=== PATIENT | female | born 1945 ===

== ENCOUNTER 2025-06-17 09:44 | Emergency (ER) | payer MEDICARE ==
[~2025-06-17] VITALS: Ht 170.2 cm; Wt 71.0 kg
[2025-06-17 10:06] VITALS: BP 129/79; PULSE 55; RESP 18; TEMP 97.7; O2SAT 98
[2025-06-17 11:07] LABS: MEAN PLATELET VOLUME 9.6 FL (7.4-10.4); RED CELL DISTRIBUTION WIDTH 14.5 % (11.5-14.5)
[2025-06-17 11:34] LABS: CREATININE 0.90 MG/DL (0.40-0.90); PRO BRAIN NATRIURETIC PEPTIDE 130 PG/ML (0-450); TOTAL CARBON DIOXIDE 29.0 MMOL/L (24-32); eCRCL 48 ML/MIN; eGFR 60 ML/MIN
== END 2025-06-17 13:26 | disposition left against medical advice (07) ==
LOC: ER 09:46
DX: R53.1 Weakness (principal); R42 Dizziness and giddiness; R79.9 Abnormal finding of blood chemistry, unspecified; Z88.1 Allergy status to other antibiotic agents; Z53.21 Procedure and treatment not carried out due to patient leaving prior to being seen by health care provider
CPT/HCPCS: 36415; 80048; 83880; 85025